=== PATIENT | male | born 1955 | race Caucasian/White ===

== ENCOUNTER 2023-09-20 11:47 | Emergency (ER) | payer MEDICARE, SELFPAY ==
[2023-09-20 11:52] VITALS: BP 192/91; PULSE 74; RESP 16; TEMP 36.3; O2SAT 99; BMI 31.5
--- NOTE | 2023-09-20 12:10 | ED_ITS ---
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 He is ambidextrous but uses his left arm of the time. 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 It is quite painful. He is able to flex and extend his elbow he is able with 2 shoulder. Worried about infection. He denies any sort of fever or chills. He has increased body aches all over. He does not think that this is his ankylosing spondylitis related. He reports that the enteritis is much more severe. He has all the pain medication he needs if he needs it Related Data Home Medications Medication Instructions Recorded Confirmed amlodipine 5 mg tablet 5 mg PO BID 09/20/23 09/20/23 buprenorphine 7.5 mcg/hour weekly 1 patch topical 09/20/23 09/20/23 transdermal patch dapagliflozin propanediol 10 mg 10 mg PO DAILY 09/20/23 09/20/23 tablet (Farxiga) ezetimibe 10 mg tablet 10 mg PO DAILY 09/20/23 09/20/23 gabapentin 300 mg capsule 300 mg PO 3XD 09/20/23 09/20/23 hydrocodone 10 mg-acetaminophen 1 tab PO 4XD PRN 09/20/23 09/20/23 325 mg tablet ibuprofen 600 mg tablet 600 mg PO Q6H PRN 09/20/23 09/20/23 insulin glargine U-300 conc 300 unit SUBCUT 09/20/23 09/20/23 unit/mL (3 mL) subcutaneous pen (Toujeo Max U-300 SoloStar) levothyroxine 200 mcg tablet 200 mcg PO DAILY 09/20/23 09/20/23 losartan 100 mg tablet 100 mg PO DAILY 09/20/23 09/20/23 metformin 500 mg tablet 1,000 mg PO BID 09/20/23 09/20/23 oxycodone-acetaminophen 7.5 mg-325 1 tab PO DAILY 09/20/23 09/20/23 mg tablet tadalafil 5 mg tablet 5 mg PO DAILY 09/20/23 09/20/23 Allergies Allergy/AdvReac Type Severity Reaction Status Date / Time No Known Drug Allergies Allergy Unverified 09/20/23 11:54 Patient History Social History Smoking Status: Never smoker Smoking Status: Never smoker alcohol intake frequency: a few times a week Substance Use Type: does not use Exam Initial Vital Signs Initial Vital Signs: Vital Signs Temperature 97.4 F L 09/20/23 11:52 Pulse Rate 74 09/20/23 11:52 Respiratory Rate 16 09/20/23 11:52 Blood Pressure 192/91 H 09/20/23 11:52 Pulse Oximetry 99 09/20/23 11:52 Oxygen Delivery Method Room Air 09/20/23 11:52 GENERAL: Alert well-appearing 68-year-old male with both arms behind his head and in no acute distress. HEENT: Head atraumatic,EOMI, pupils reactive, face symmetric, moist mucous membranes CARDIOVASCULAR: Regular rate and rhythm without murmurs, rubs or gallops. RESPIRATORY: Breath sounds equal bilaterally, no wheezes rales or rhonchi. ABDOMEN: Soft, nontender. Normoactive bowel sounds all 4 quadrants. No guarding or rebound. EXTREMITIES: Normal range of motion, no clubbing or edema. Neurovascularly intact Left upper extremity there is obvious forearm swelling appreciable erythema. Able to flex and extend elbow no difficulty some mild edema mildly painful to touch glucose monitor on left arm distal radial pulse intact NEUROLOGICAL: Alert and oriented x4.Normal gait and speech. SKIN: Warm, dry, no laceration, no petechiae, no rashes or lesions. No significant erythema Course Orders Ordered: ED Orders 09/20/23 14:49 US periph venous up extrem lt Stat 09/20/23 14:57 CBC Auto Diff [Complete Blood Count AUTO DIFF] Stat CMP [Comprehensive Metabolic Panel] Stat Vital Signs Vital signs: Vital Signs - 8 hr 09/20/23 11:52 09/20/23 16:05 Temperature 97.4 F L Pulse Rate 74 70 Respiratory Rate 16 20 Blood Pressure 192/91 H 190/84 H Pulse Oximetry 99 Oxygen Delivery Method Room Air MDM - Extremity (Nontraumatic) Lab Data 09/20/23 14:57 06/12/24 14:57 Labs: Lab Results 09/20/23 Range/Units 14:57 WBC 4.9 (4.5-11.0) X10^3/uL RBC 5.04 (4.5-5.9) X10^6/uL Hgb 15.6 (13.5-17.5) g/dL Hct 46.1 (41-53) % MCV 91.5 (80-100) fL MCH 30.9 (26-34) PG MCHC 33.8 (30-36) % RDW 16.0 H (11.6-14.8) % Plt Count 185 (150-400) X10^3/uL Neut % (Auto) 54.6 (50-75) % Lymph % (Auto) 19.8 L (25-40) % [place] % (Auto) 7.8 (3-14) % Eos % (Auto) 16.8 H (2-4) % Baso % (Auto) 1.0 (0-2) % Neut # (Auto) 2700 (0068-2182) /uL Lymph # (Auto) 1000 L (0696-9054) /uL [place] # (Auto) 400 (0-900) /uL Eos # (Auto) 800 H (0-450) /uL Baso # (Auto) 0 (0-100) /uL Sodium 140 (137-145) mmol/L Potassium 4.2 (3.4-5.1) mmol/L Chloride 111 H (98-107) mmol/L Carbon Dioxide 23 (22-32) mmol/L BUN 23 H (9-20) mg/dL Creatinine 1.12 (0.66-1.25) mg/dL Estimated GFR > 60 (>60) mL/min BUN/Creatinine Ratio 20.5 (6-22) Glucose 119 H (80-110) mg/dL Calcium 9.4 (8.4-10.2) mg/dL Total Bilirubin 0.6 (0.2-1.3) mg/dL AST 43 (17-59) IU/L ALT 36 (<50) IU/L Alkaline Phosphatase 79 (38-126) U/L Total Protein 6.7 (6.3-8.2) g/dL Albumin 4.3 (3.5-5.0) g/dL Globulin 2.4 (1.7-4.1) g/dL Albumin/Globulin Ratio 1.8 (1.0-2.8) MDM Narrative Medical decision making narrative: Patient 68-year-old male with significant history of melanoma, angles spondylitis presenting from the walk-in clinic today with left arm swelling and pain. He does not have any obvious source of cellulitis or infection he is afebrile. Moving arm very easily and appears comfortable. Blood work has been reviewed WBC 4.9 without left shift, electrolytes are stable Ultrasound no evidence of DVT Patient really is moving his arm very well it is obviously more swollen there is no significant erythema he is afebrile without leukocytosis very low suspicion for septic joint. He has been painting his elbow I suspect that this is from overuse. Recommend elevation and ice. Recommend continuing to monitor but this time really no need for antibiotics. Discharge Plan Departure Patient Disposition: Home Clinical Impression: Left arm swelling Activity Restrictions/Additional Instructions: *You have been diagnosed with left arm swelling *What to do: At this time your blood work is overall reassuring no need for antibiotics at this time. I would recommend that you continue to wear the sleeve ice as needed *Continue to take medications as directed *Follow up with your primary care provider in 2-3 days or call [phone] *Return to ER if you should have redness pain with movement decreased range of movement fever or any new, worsening or concerning symptoms Prescriptions: No Action amlodipine 5 mg tablet 5 mg PO BID buprenorphine 7.5 mcg/hour patch weekly 1 patch topical oxycodone-acetaminophen 7.5-325 mg tablet 1 tab PO DAILY gabapentin 300 mg capsule 300 mg PO 3XD losartan 100 mg tablet 100 mg PO DAILY insulin glargine U-300 conc [Toujeo Max U-300 SoloStar] 300 unit/mL (3 mL) insulin pen SUBCUT Patient Comments: [NO ORIGINAL SIG] ibuprofen 600 mg tablet 600 mg PO Q6H PRN dapagliflozin propanediol [Farxiga] 10 mg tablet 10 mg PO DAILY ezetimibe 10 mg tablet 10 mg PO DAILY levothyroxine 200 mcg tablet 200 mcg PO DAILY tadalafil 5 mg tablet 5 mg PO DAILY metformin 500 mg tablet 1,000 mg PO BID hydrocodone-acetaminophen 10-325 mg tablet 1 tab PO 4XD PRN Referrals: Miscellaneous,Doctor, [Primary Care Provider] - Stand Alone Forms: Patient Portal/API
--- NOTE | 2023-09-20 14:49 | DI.US.S_ITS ---
PROCEDURE: US PERIPH VENOUS UP EXTREM LT INDICATIONS: swelling TECHNIQUE: Real-time imaging, as well as color and pulse Doppler interrogation, was performed of the upper extremity deep veins from the inferior neck to the antecubital fossa. COMPARISON: None. FINDINGS: The internal jugular vein, visualized portions of the subclavian vein, axillary, and brachial veins are free of intraluminal thrombus. Where physically possible, the veins are normally compressible. Color and pulse Doppler demonstrate normal intraluminal flow, with expected phasicity and pulsatility. Additional scanning of the cephalic and basilic veins of the superficial system demonstrates normal compressibility, without thrombus. IMPRESSION: No findings of upper extremity deep venous thrombosis can be seen. Dictated by: Perez Barry M.D. on 09/20/2023 at 14:49 Approved by: Perez Barry M.D. on 09/20/2023 at 14:49
[2023-09-20 15:07] LABS: Add Manual Diff / Slide Review NO; Basophils Absolute Auto 0 /uL (0-100); Eosinophils Absolute Auto 800 /uL (0-450); Eosinophils Percent Auto 16.8 % (2-4); Hematocrit 46.1 % (41-53); Hemoglobin 15.6 g/dL (13.5-17.5); Lymphocytes Absolute Auto 1000 /uL (1100-4500); Lymphocytes Percent Auto 19.8 % (25-40); Mean Corpuscular HGB Conc 33.8 % (30-36); Mean Corpuscular Hemoglobin 30.9 PG (26-34); Mean Corpuscular Volume 91.5 fL (80-100); Monocytes Absolute Auto 400 /uL (0-900); Monocytes Percent Auto 7.8 % (3-14); Neutrophils Absolute Auto 2700 /uL (1500-7000); Neutrophils Percent Auto 54.6 % (50-75); Platelet Count 185 X10^3/uL (150-400); Red Blood Cell Count 5.04 X10^6/uL (4.5-5.9); White Blood Cell Count 4.9 X10^3/uL (4.5-11.0)
[2023-09-20 15:27] LABS: Alanine Aminotransferase 36 IU/L (<50); Albumin 4.3 g/dL (3.5-5.0); Albumin Globulin Ratio 1.8 (1.0-2.8); Alkaline Phosphatase 79 U/L (38-126); Aspartate Aminotransferase 43 IU/L (17-59); BUN Creatinine Ratio 20.5 (6-22); Bilirubin Total 0.6 mg/dL (0.2-1.3); Blood Urea Nitrogen 23 mg/dL (9-20); Calcium 9.4 mg/dL (8.4-10.2); Carbon Dioxide 23 mmol/L (22-32); Chloride 111 mmol/L (98-107); Estimated Glomerular Filt Rate > 60 mL/min (>60); Globulin 2.4 g/dL (1.7-4.1); Glucose 119 mg/dL (80-110); HEMOLYSIS < 15 (0-50); Potassium 4.2 mmol/L (3.4-5.1); Sodium 140 mmol/L (137-145); Total Protein 6.7 g/dL (6.3-8.2)
[2023-09-20 16:05] VITALS: BP 190/84; PULSE 70; RESP 20
== END 2023-09-20 16:08 | disposition home or self-care (01) ==
PROVIDERS: Emergency Provider Emergency Medicine
DX: M79.89 Other specified soft tissue disorders (principal); Z79.899 Other long term (current) drug therapy
CPT/HCPCS: 80053; 85025; 93971; 99281; 99284